=== PATIENT | male | born 1980 | race Caucasian/White ===

== ENCOUNTER 2022-12-19 13:27 | Emergency (ER) | payer MEDICAID, SELFPAY ==
[2022-12-19] VITALS (16 sets, daily range): BP systolic 97–132; BP diastolic 59–89; PULSE 52–92; RESP 13–20; TEMP 36.4; O2SAT 93–99; BMI 34.2
--- NOTE | 2022-12-19 13:58 | XRR_ITS ---
PROCEDURE INFORMATION: Exam: XR Chest Exam date and time: 12/19/2022 2:20 PM Age: 42 years old Clinical indication: Pain; Other: Abdomen; Additional info: Epigastric pain.No history of trauma or recent surgery is provided. TECHNIQUE: Imaging protocol: Radiologic exam of the chest. 1image(s) are provided. Views: 1 view. COMPARISON: No relevant prior studies available. FINDINGS: Lungs: There is bandlike subsegmental atelectasis versus post inflammatory scarring demonstrated.No lobar consolidation is appreciated. There is some mild chronic air trapping appearance along with subcentimeter nodularity suggestive of granulomatous related change for example density of the right lung base. Pleural spaces: No pneumothorax or significant pleural effusion is appreciated. Heart/Mediastinum: There is a small sliding-type hiatal hernia demonstrated with slight gastroesophageal fold thickening. Diaphragm: The hemidiaphragms are relatively symmetric. Bones/joints: No fracture or dislocation is appreciated. Soft tissues: No radiopaque foreign body or subcutaneous emphysema is appreciated. XR/XR chest 1V portable [id number] IMPRESSION: There is chronic air trapping with no lobar consolidation appreciated.No acute cardiopulmonary changes are appreciated.
--- NOTE | 2022-12-19 13:58 | CTR_ITS ---
PROCEDURE INFORMATION: Exam: CT Abdomen And Pelvis With Contrast Exam date and time: 12/19/2022 2:29 PM Age: 42 years old Clinical indication: Abdominal pain; Epigastric; Additional info: Intermittent epigastric pain.No history of trauma or recent surgery is provided. TECHNIQUE: Imaging protocol: Computed tomography of the abdomen and pelvis with contrast. 239image(s) are provided. Radiation optimization: All CT scans at this facility use at least one of these dose optimization techniques: automated exposure control; mA and/or kV adjustment per patient size (includes targeted exams where dose is matched to clinical indication); or iterative reconstruction. Contrast material: OMNI 350; Contrast volume: 100 ml; Contrast route: INTRAVENOUS (IV); Other technique: Axial images are available with sagittal and coronal reconstruction views. Automated dose exposure control is utilized. The DLP is 1137.91. REPORTING DATA: Count of CT and Cardiac NM exams in prior 12 months: This patient has received 0 known CTs and 0 known cardiac nuclear medicine studies in the 12 months prior to the current study. COMPARISON: CR (CHEST, ) 12/19/2022 2:[address] abdomen is currently available. RADIATION DOSE METRICS: Total DLP (mGy-cm): 1137.91 FINDINGS: Lungs: There is minimal subsegmental atelectasis versus post inflammatory reticulonodular scarring demonstrated with left basilar predominance.No lobar consolidation is appreciated. There is some mild chronic air trapping appearance along with some pneumatocele or bleb related changes. Liver: There appears to be some marginal hepatic steatosis. Gallbladder and bile ducts: The gallbladder is slightly contracted with some calcific sludge type appearance. There is also borderline wall thickening. There is some borderline overall prominence of the intrahepatic as well as the extrahepatic bile ducts. Common bile duct distally measures approximately 7.2 mm. No definite radiopaque obstructive calculus within is currently appreciated with some adjacent bowel content luminal averaging.Distal most, ampullary level evaluation is limited. Pancreas: No pancreatic ductal dilatation or calcification is currently appreciated. Spleen: There is some splenic granulomatous type appearance. Adrenal glands: Unremarkable. Kidneys and ureters: There is homogeneous renal parenchymal enhancement with no radiopaque obstructive calculus or hydronephrosis appreciated. Stomach and bowel: Some aspects of the colon are undistended. This may also be peristaltic related.There is abundant stool present limiting mucosal detail evaluation.The bowel gas pattern appears nonobstructive.There is a small sliding-type hiatal hernia demonstrated with slight gastroesophageal fold thickening. The stomach is otherwise fluid filled and content distended. Appendix: No evidence of appendicitis. Intraperitoneal space: No free air or free fluid collections are appreciated. Vasculature: No abdominal aortic aneurysmal dilatation or periaortic fluid is appreciated. Lymph nodes: There are subcentimeter predominant para-aortic and mesenteric lymph nodes overall present. This can be seen with previous inflammation or adenitis sequela. Urinary bladder: The bladder is incompletely fluid filled for evaluation which may exagerate the wall thickness. This can also be seen with post inflammation sequela. Reproductive: Unremarkable as visualized. Bones/joints: Osseous alignment is maintained.No displaced fracture or dislocation is appreciated. There appears to be some spurring with mild chronic appearing disc space narrowing for example including at the lumbosacral junction. This along with some dorsal disc bulging contributes to some neural foraminal narrowing. Soft tissues: No radiopaque foreign body or subcutaneous emphysema is appreciated. Other findings: There is some motion artifact present. CT/CT abdomen pelvis w con* [id number] IMPRESSION: 1. The gallbladder is slightly contracted with some trace calcific sludge and borderline wall thickness. In addition there is some prominence of the intrahepatic as well as extrahepatic bile ducts with no definite radiopaque obstructive calculus currently appreciated. Some early inflammation could also present in this fashion. Recommend correlation with the hepatic and biliary profile studies. This can also be further evaluated with right upper quadrant ultrasound. 2. There is some mild hepatic steatosis.
--- NOTE | 2022-12-19 14:03 | W.ED.NAVMDI ---
HPI - Nausea/Vomiting/Diarrhea General: Chief complaint: Nausea/Vomiting/Diarrhea Stated complaint: severe chest pains, loss of cons. Time Seen by Provider: 12/19/22 13:34 History of Present Illness: This 42-year-old male with a history of methamphetamine use presents to the ER with intermittent epigastric pain that has been going on for about 5 weeks now. Pain started again this morning, prompting him to come to the ER for evaluation. Patient is at a drug rehab center ([facility]) where he has been since November 30. As a result of the pain, he has decreased appetite. Last BM was this morning. Patient denies fever but does have nausea and vomiting. He reports that after vomiting on his way to the hospital, he passed out . He is clinically stable and is at his baseline. Associated nausea: Yes Associated symtoms: Reports nausea; Denies change in vision, chest pain, dysuria or headache(s) Review of Systems Const: Denies: chills, body aches or change in appetite Eyes: Denies: change in vision or eye discharge ENMT: Denies: throat pain, dental pain or nasal discharge Card: Denies: chest pain or lightheadedness GI: Reports: abdominal pain (epigastric pain), nausea and vomiting : Denies: dysuria Musc: Denies: neck pain or back pain Neuro: Denies: headache(s) or weakness in extremities Psych: Denies: depression Alvaro/Lymph: Denies: easy bruising All/Imm: Denies: urticaria, tongue swelling or facial swelling Physical Exam Const: COMMON NORMALS: no acute distress, patient oriented x3, no limitations and alert HENMT: COMMON NORMALS: normocephalic HEAD & SCALP: normocephalic Eye: COMMON NORMALS: EOMs intact bilaterally Neck/C-Spine: COMMON NORMALS: full ROM and supple Chest: COMMONS NORMALS: normal inspection of the chest Resp: COMMON NORMALS: normal respiratory effort, No retractions, No use of accessory muscles and clear to auscultation bilaterally AUSCULTATION: clear to auscultation bilaterally Cardio: COMMON NORMALS: regular rate, regular rhythm and No murmurs present (Cardio) RATE: regular rate RHYTHM: regular rhythm GI: COMMON NORMALS: Normal to inspection, nondistended, normoactive bowel sounds present PALPATION: Yes Tenderness to palpation present (GI) (epigastric tenderness) : COMMON NORMALS: Yes no CVA tenderness BLADDER/KIDNEY EXAM: Yes no CVA tenderness Back/Pelvis: COMMON NORMALS: no CVA tenderness and no thoracic nor lumbar tenderness Extremity: GENERAL: Yes normal exam except as noted Neuro: COMMON NORMALS: patient oriented x3 and no focal motor deficits SENSORIUM/ORIENTATION: Yes alert Psych: COMMON NORMALS: mental status grossly normal and cooperative Course Consultations: Consultation #1: Case discussed with Dr. Villegas. He recommended getting an right upper quadrant ultrasound prior to admission. Time: 15:50 Consultation #2: Right upper quadrant ultrasound is available. Discussed the results with Dr. Villegas. He recommends that we seek GI consultation with a view to possibly transferring patient. Time: 17:51 Consultation #3: Case discussed with Dr. Currie at [facility]. He accepted patient in transfer. Once a bed is available, they will give us a go ahead to transfer patient. Vital Signs: Vital signs: Vital Signs Temperature 97.6 F 12/19/22 13:32 Pulse Rate 85 12/20/22 01:00 Respiratory Rate 16 12/20/22 01:00 Blood Pressure 125/84 12/20/22 01:00 Pulse Oximetry 92 12/20/22 01:00 Oxygen Delivery Me thod Room Air 12/20/22 00:30 MDM - Nausea/Vomiting/Diarrhea Medical Decision Making Medical decision making: History as above. Given that there are concerns about possible common bile duct obstruction and patient may need an ERCP, she ill be transferred to a different facility. Patient was subsequently accepted at [facility]. Lab Data 12/19/22 14:06 12/19/22 14:06 Radiology Impressions Abdomen/Pelvis CT 12/19/22 13:58 IMPRESSION: 1. The gallbladder is slightly contracted with some trace calcific sludge and borderline wall thickness. In addition there is some prominence of the intrahepatic as well as extrahepatic bile ducts with no definite radiopaque obstructive calculus currently appreciated. Some early inflammation could also present in this fashion. Recommend correlation with the hepatic and biliary profile studies. This can also be further evaluated with right upper quadrant ultrasound. 2. There is some mild hepatic steatosis. Chest X-Ray 12/19/22 13:58 IMPRESSION: There is chronic air trapping with no lobar consolidation appreciated.No acute cardiopulmonary changes are appreciated. Gallbladder Ultrasound 12/19/22 15:45 IMPRESSION: Cholelithiasis. Abnormally dilated common bile duct concerning for obstruction without visualized mass or obstructing calculus. No gallbladder wall thickening. Laboratory Results WBC 10.3 10^3/uL (4.0-10.0) H 12/19/22 14:06 RBC 4.69 10^6/uL (4.1-5.3) 12/19/22 14:06 Hgb 14.8 g/dL (11.7-16.6) 12/19/22 14:06 Hct 44.8 % (42.0-52.0) 12/19/22 14:06 MCV 95.5 fl (80-94) H 12/19/22 14:06 MCH 31.6 pg (28.0-34.0) 12/19/22 14:06 MCHC 33.0 g/dL (30.0-36.0) 12/19/22 14:06 RDW 12.0 % (12.1-15.1) L 12/19/22 14:06 Plt Count 304 10^3/cmm (130-400) 12/19/22 14:06 MPV 10.4 fL (7.4-10.4) 12/19/22 14:06 Neut % (Auto) 67.3 % 12/19/22 14:06 Lymph % (Auto) 21.4 % 12/19/22 14:06 [place] % (Auto) 9.0 % 12/19/22 14:06 Eos % (Auto) 1.2 % 12/19/22 14:06 Baso % (Auto) 0.8 % 12/19/22 14:06 Neut # (Auto) 6.96 10^3/uL (1.8-7.7) 12/19/22 14:06 Lymph # (Auto) 2.2 10^3/uL (0.8-4.8) 12/19/22 14:06 [place] # (Auto) 0.9 10^3/uL (0.2-0.9) 12/19/22 14:06 Eos # (Auto) 0.1 10^3/uL (0.0-0.8) 12/19/22 14:06 Baso # (Auto) 0.1 10^3/uL (0.0-0.1) 12/19/22 14:06 Nucleated RBC % (auto) 0 % 12/19/22 14:06 Nucleated RBCs # 0.0 /100WBC 12/19/22 14:06 Sodium 138 mmol/L (136-145) 12/19/22 14:06 Potassium 4.2 mmol/L (3.5-5.1) 12/19/22 14:06 Chloride 100 mmol/L (98-107) 12/19/22 14:06 Carbon Dioxide 26 mmol/L (22-29) 12/19/22 14:06 Anion Gap 16.2 (5-19) 12/19/22 14:06 BUN 14 mg/dL (6-20) 12/19/22 14:06 Creatinine 0.7 mg/dL (0.7-1.2) 12/19/22 14:06 GFR Calculation 124.3 mL/min (90-130) 12/19/22 14:06 Glucose 110 mg/dL (65-115) 12/19/22 14:06 Calculated Osmolality 287 mOsm/kg (285-295) 12/19/22 14:06 Calcium 9.0 mg/dL (8.5-10.5) 12/19/22 14:06 Total Bilirubin 0.9 mg/dL (0.15-1.2) 12/19/22 14:06 AST 108 U/L (0-40) H 12/19/22 14:06 ALT 95 U/L (0-41) H 12/19/22 14:06 Alkaline Phosphatase 98 U/L (40-130) 12/19/22 14:06 Troponin T Gen 5 ng/L 8 ng/L (0-15) 12/19/22 14:06 Total Protein 6.9 g/dL (6.6-8.7) 12/19/22 14:06 Albumin 4.2 g/dL (3.5-5.2) 12/19/22 14:06 Globulin 2.7 g/dL (1.3-4.6) 12/19/22 14:06 Lipase 209 U/L (13-60) H 12/19/22 14:06 Discharge Plan Discharge Patient Disposition: Xfer Short-Term Hosp Clinical Impression: Acute pancreatitis Condition: Stable Coding Level of Care Code ED Transfer Clerk for Jessica Peters
[2022-12-19 14:13] LABS: Basophils # 0.1 10^3/uL (0.0-0.1); Basophils % 0.8 %; Eosinophils # 0.1 10^3/uL (0.0-0.8); Eosinophils % 1.2 %; Hematocrit 44.8 % (42.0-52.0); Hemoglobin 14.8 g/dL (11.7-16.6); Lymphocytes # 2.2 10^3/uL (0.8-4.8); Lymphocytes % 21.4 %; Mean Corpuscular Hemoglobin 31.6 pg (28.0-34.0); Mean Corpuscular Volume 95.5 fl (80-94); Mean Platelet Volume 10.4 fL (7.4-10.4); Monocytes # 0.9 10^3/uL (0.2-0.9); Neutrophils # 6.96 10^3/uL (1.8-7.7); Neutrophils % 67.3 %; Nucleated Red Blood Cells % 0 %; Platelet Count 304 10^3/cmm (130-400); Red Blood Count 4.69 10^6/uL (4.1-5.3); White Blood Count 10.3 10^3/uL (4.0-10.0)
[2022-12-19] MEDS: lidocaine 2% viscous 15 ML, aluminum-mag hydrox-simethicon 30 ML, sucralfate oral liq 1 GM PO (14:16)
[2022-12-19] MEDS: sodium chloride 0.9% 1,000 ML 999 ML IV (14:16)
[2022-12-19 14:28] LABS: Alanine Aminotransferase 95 U/L (0-41); Albumin Level 4.2 g/dL (3.5-5.2); Alkaline Phosphatase 98 U/L (40-130); Anion Gap 16.2 (5-19); Aspartate Amino Transferase 108 U/L (0-40); Blood Urea Nitrogen 14 mg/dL (6-20); Carbon Dioxide 26 mmol/L (22-29); Chloride 100 mmol/L (98-107); Globulin 2.7 g/dL (1.3-4.6); Glomerular Filtration Rate 124.3 mL/min (90-130); Glucose 110 mg/dL (65-115); Lipase 209 U/L (13-60); Osmolality Calculated 287 mOsm/kg (285-295); Potassium 4.2 mmol/L (3.5-5.1); Sodium 138 mmol/L (136-145); Total Bilirubin 0.9 mg/dL (0.15-1.2); Total Protein 6.9 g/dL (6.6-8.7)
[2022-12-19 14:30] LABS: Troponin T (5th) Once 8 ng/L (0-15)
[2022-12-19] MEDS: iohexol 350 mg/mL 500 mL Btl (per mL) IV (14:33)
--- NOTE | 2022-12-19 14:58 | PC.PHAR ---
pt states he takes no medications-pt states he is from [facility] no paperwork was sent called [phone] not open-no answer-pt states he finished the azithromycin and prednisone 40mg daily written on 12/02/22-pt states he never got ventolin written on 12/02/22 states couldnt afford it
--- NOTE | 2022-12-19 15:45 | USR_ITS ---
PROCEDURE INFORMATION: Exam: US Abdomen, Limited; Right Upper Quadrant Exam date and time: 12/19/2022 4:01 PM Age: 42 years old Clinical indication: Abdominal pain; Acute; Additional info: Elevated lipase level. TECHNIQUE: Imaging protocol: Real time ultrasound of the abdomen with image documentation. Limited exam focused on the right upper quadrant. COMPARISON: CT abdomen pelvis w con* [id number] 12/19/2022 2:29 PM FINDINGS: Liver: Homogeneous in echogenicity and enlarged measuring 19.9 cm in length. No masses. Gallbladder: There is cholelithiasis. Gallbladder wall is normal thickness at 2.8 mm Biliary ducts: Common bile duct is dilated measuring 7.7 mm. Pancreas: Obscured by bowel gas artifact. Right kidney: No adolfo hydronephrosis. There is a small amount of fluid in the renal pelvis measuring 9 mm but no caliectasis. No hydronephrosis on the CT scan of the same day. No calculi or mass. Right kidney measures 13.0 cm in length. US/US gall bladder [id number] IMPRESSION: Cholelithiasis. Abnormally dilated common bile duct concerning for obstruction without visualized mass or obstructing calculus. No gallbladder wall thickening.
[2022-12-19] MEDS: morphine 4 mg/mL SDV 1 mL IVP (18:37)
--- NOTE | 2022-12-19 19:00 | PC.NURSE ---
Pt report taken from [facility]. Pt resting in bed at this time. Pt denies needs at this time.
[2022-12-19] MEDS: ketorolac 30 mg/mL INJ IM (21:33)
--- NOTE | 2022-12-19 21:41 | PC.NURSE ---
Update given to [facility]
[2022-12-20] VITALS: BP 117/79; PULSE 71; RESP 21; O2SAT 92
[2022-12-20 00:30] VITALS: BP 125/84; PULSE 85; RESP 16; O2SAT 92
[2022-12-20 01:00] VITALS: BP 125/84; PULSE 85; RESP 16; O2SAT 92
--- NOTE | 2022-12-23 14:16 | DCPLANNER ---
telecom manager called patient due to no primary care physician - no answer at this time.
== END 2022-12-20 01:09 | disposition short-term general hospital (02) ==
PROVIDERS: Emergency Provider Family Medicine
DX: K85.90 Acute pancreatitis without necrosis or infection, unspecified (principal)
CPT/HCPCS: 71045; 74177; 76705; 80053; 83690; 84484; 85025; 96374; 99285; J1885; J2270; J7030; Q9967